=== PATIENT | male | born 1950 | race Caucasian/White ===

== ENCOUNTER → 2018-12-29 | Outpatient (CLI) | payer MEDICARE ==
[2018-12-30 11:39] LABS: Alt. alternata IgE Class CLASS 0; Alternaria alternata IgE <0.35 kU/L (<0.35); Asperg. fumagatus IgE <0.35 kU/L (<0.35); Asperg. fumagatus IgE Class CLASS 0; Aureo. pullulans IgE <0.35 kU/L (<0.35); Aureo. pullulans IgE Class CLASS 0; Birch(Com.Silvr) IgE <0.35 kU/L (<0.35); Birch(Com.Silvr) IgE Class CLASS 0; Candida albicans IgE Class CLASS 0; Cat Epith & Dander IgE <0.35 kU/L (<0.35); Cat Epith & Dander IgE Class CLASS 0; Clad herbarum IgE <0.35 kU/L (<0.35); Clad herbarum IgE Class CLASS 0; Cockroach IgE <0.35 kU/L (<0.35); Com. Pigweed IgE <0.35 kU/L (<0.35); Com. Pigweed IgE Class CLASS 0; Cottonwood IgE <0.35 kU/L (<0.35); Dermato. Pteronyssinus Class CLASS 0; Dermato. Pteronyssinus IgE <0.35 kU/L (<0.35); Dermato. farinae IgE <0.35 kU/L (<0.35); Dermato. farinae IgE Class CLASS 0; Dog Dander IgE <0.35 kU/L (<0.35); English Plantain IgE Class CLASS 0; Epicoccum purpurascens Class CLASS 0; Epicoccum purpurascens IgE <0.35 kU/L (<0.35); Johnson Grass IgE Class CLASS 0; Lamb's Quarter IgE <0.35 kU/L (<0.35); Lamb's Quarter IgE Class CLASS 0; Maple (Box Elder) IgE <0.35 kU/L (<0.35); Maple (Box Elder) IgE Class CLASS 0; Mucor racemosus IgE <0.35 kU/L (<0.35); Mucor racemosus IgE Class CLASS 0; Oak IgE <0.35 kU/L (<0.35); Rhizopus nigricans IgE <0.35 kU/L (<0.35); S.rostrata/Helminth Class CLASS 0; S.rostrata/Helminth IgE <0.35 kU/L (<0.35); Sycamore(Mpl.Lf) IgE <0.35 kU/L (<0.35); Timothy Grass IgE <0.35 kU/L (<0.35); Walnut Tree IgE <0.35 kU/L (<0.35); Walnut Tree IgE Class CLASS 0; White Ash IgE Class CLASS 0
== END | disposition home or self-care (01) ==
LOC: LABWHC1 12:00
PROVIDERS: ATTEND Otolaryngology
DX: J30.89 Other allergic rhinitis (principal)
CPT/HCPCS: 36415; 86001; 86003

== ENCOUNTER → 2019-01-30 | Outpatient (CLI) | payer MEDICARE ==
--- NOTE | 2019-01-30 15:50 | CT ---
EXAMINATION TYPE: CT sinus wo con DATE OF EXAM: 01/30/2019 COMPARISON: None HISTORY: 68-year-old male Facial pain and pressure for years CT DLP: 591 mGycm Automated exposure control for dose reduction was used. TECHNIQUE: Noncontrast axial views of the paranasal sinuses were obtained. Coronal reconstructions pe rformed. FINDINGS: PARANASAL SINUSES: Scattered trace mucosal thickening anterior ethmoid air cells. Additional mild mucosal thickening along the floor and medial grant of the right greater than left ma xillary sinuses. Otherwise, the frontal and sphenoid sinuses are clear and well pneumatized. There is no air-fluid level. Reactive luis- osteogenesis is not seen. There is no destruction of the osseous grant of the paranasal sinuses. THE NASAL CAVITY: The osteomeatal complexes are patent. Rightward nasal septal deviation. The imaged brain and orbits are normal in appearance. Numerous punctate calcifications in the region of the right palatine tonsil suggest a number of tonsi lloliths and/or sequela of prior infection. Mastoid air cells and middle ear cavities are well pneumatized. Reformatted images confirm above findings. IMPRESSION: 1. Mild chronic anterior ethmoid and maxillary sinus disease. 2. Rightward nasal septal deviation. 3. Right palatine tonsils with numerous punctate calcifications, tiny tonsilloliths versus sequela of prior infection.
== END | disposition home or self-care (01) ==
LOC: RADCTMAIN 13:29
PROVIDERS: ATTEND Otolaryngology
DX: J32.2 Chronic ethmoidal sinusitis (principal); J32.0 Chronic maxillary sinusitis; J34.2 Deviated nasal septum
CPT/HCPCS: 70486

== ENCOUNTER 2019-04-05 10:27 | Day surgery (SDC) | payer MEDICARE ==
[2019-03-30 15:18] VITALS: BMI 28.1
[~2019-04-05 10:27] MED LIST: DEXAMETHASONE SOD PHOSPHATE 10 MG/ML 1 ML VIAL IV ONE; DEXAMETHASONE SOD PHOSPHATE 4 MG/ML 1 ML VIAL IV ONE; FAMOTIDINE 20 MG/2 ML VIAL IV ONE; HYDROmorphone 0.5 MG/0.5 ML SYRINGE IVP PRN; LACTATED RINGERS 1,000 ML IV SCH; LIDOCAINE 1% 20 ML VIAL (10MG/ML) FOR IV START INTRADERMA PRN; ONDANSETRON 4 MG/2 ML VIAL IVP ONE; OXYMETAZOLINE 0.05% NASL SPRAY 1 SPRAY BOTTLE NASAL ONE
[2019-04-05 11:21] LABS: Glucose,Whole Blood 133 mg/dL (75-99)
[2019-04-05] MEDS ORDERED: LIDOCAINE 1% INJ 10MG/ML (20 ML MDV) ONE (11:44)
[2019-04-05] MEDS ORDERED: PHENYLEPHRINE-0.9% NACL SYG 1 MG/10 ML SYRINGE ONE (11:44)
[2019-04-05] MEDS ORDERED: PROPOFOL 10 MG/ML 20 ML VIAL IV ONE (11:44)
[2019-04-05] MEDS ORDERED: MIDAZOLAM 2 MG/2 ML VIAL ONE (11:44)
[2019-04-05] MEDS ORDERED: SUCCINYLCHOLINE CHLORIDE 100 MG/5 ML SYR IV ONE (11:44)
[2019-04-05] MEDS ORDERED: ePHEDrine SULFATE/0.9% NACL/PF 50 MG/5 ML SYRINGE IV ONE (11:44)
[2019-04-05] MEDS ORDERED: fentaNYL (PF) 50 MCG/ML 2 ML AMP ONE (11:44)
[2019-04-05] MEDS ORDERED: LIDOCAINE 1%-EPI 1:100,000 20 ML VIAL SUBMUCOSAL ONE ×4 (12:02)
[2019-04-05] MEDS ORDERED: LACTATED RINGERS 1,000 ML IV ONE (12:25)
--- NOTE | 2019-04-05 13:10 | P.OP ---
Date of Procedure: 04/05/19 Preoperative Diagnosis: Deviated nasal septum Inferior turbinate hypertrophy Chronic sinusitis Postoperative Diagnosis: Same Procedure(s) Performed: Septoplasty Outfracture and submucous resection of the inferior turbinates Bilateral endoscopic sinus surgery including bilateral maxillary antrostomy with removal of tissue from the maxillary sinuses and bilateral anterior ethmoidectomy Anesthesia: LAYTON Surgeon: Milan Scott Estimated Blood Loss (ml): 5 Pathology: other (Nasal septal bone and cartilage and sinus contents) Condition: stable Disposition: PACU Indications for Procedure: This is a 68-year-old white male who has difficulties with chronic nasal airway obstruction and congestion as well as recurrent and chronic sinusitis he had computed tomography scan which showed maxillary sinus and scattered anterior ethmoid sinus inflammation/opacification Operative Findings: Nasal septum deviated to the left anteriorly to the right posteriorly with inferior turbinate hypertrophy bilaterally. Estimated complexes were obstructed with small polyps in the maxillary sinuses bilaterally. The anterior ethmoid air cells had some scattered inflammation/mucosal thickening Description of Procedure: The patient was brought into the operative suite and placed in a supine position. The patient underwent induction of general anesthesia with oral endotracheal intubation without difficulty. The patient was prepped and draped in the usual aseptic fashion with the orbits in the operating field for monitoring to the case and the computed tomography scan was on the computer screen for review throughout the case. 1% lidocaine with 1 :100,000 epinephrine was infused submucosally into both sides of the nasal septum as well as the lateral nasal wall and anterior tips of the middle turbinates. While this was taking vasoconstrictive effect the inferior turbinates were infractured with Denton elevator and partial submucous resection of the inferior turbinates was performed with a portion of the submucosal soft tissue and the inferior turbinate bone removed with Coblation device. The inferior turbinates were then outfractured with the Denton elevator. A left hemitransfixion incision was then made with the mucoperichondrial and mucoperiosteal flap on the left elevated. The bony cartilaginous junction was disarticulated and the mucoperiosteal flap on the right was elevated. Bony nasal septal deformities were removed with Andrew forceps and an inferior cartilaginous strip was removed leaving a full 1.5 cm caudal strut. Checking intranasally this corrected the nasoseptal deformities and the hemitransfixion i ncision was closed with a running 4-0 chromic suture. Full 0 endoscopic examination is performed bilaterally. Beginning on the left, the middle turbinate was medialized. The maxillary ostium was located with a ballpoint probe and an infundibulotomy was performed followed by uncinectomy. The maxillary antrostomy was enlarged at the expense of the anterior and posterior fontanelle taking care anteriorly not to injure the lacrimal bone. The maxillary sinus was evaluated with 30 and 70 endoscope .[Abnormal appearing tissue was removed from the maxillary sinus]. Anterior ethmoidectomy were then performed from anterior to posterior to the level of the skull base. The roof of the anterior ethmoid air cells were then cleaned from posterior to anterior using up-biting Blakesley forceps. [Nasopore nasal dressing was placed in the middle meatus bilaterally under direct visualization]. Bilateral Yeung airway splints coated with bacitracin ointment were placed and sutured transseptally with a 4-0 nylon suture. The patient was suctioned in oral gastric fashion and was allowed to emerge from general anesthesia having tolerated procedure well and was extubated in the operating suite and transferred to the postoperative recovery area in satisfactory condition.
[2019-04-05 13:23] VITALS: TEMP 97.7
[2019-04-05 13:34] VITALS: RESP 16
[2019-04-05 13:34] LABS: Glucose,Whole Blood 196 mg/dL (75-99)
[2019-04-05 14:51] VITALS: BP 162/76; PULSE 90
== END 2019-04-05 15:05 | disposition home or self-care (01) ==
LOC: OR 10:27
PROVIDERS: ATTEND Otolaryngology
DX: J32.9 Chronic sinusitis, unspecified (principal); J34.3 Hypertrophy of nasal turbinates; J34.2 Deviated nasal septum; J33.8 Other polyp of sinus; E11.9 Type 2 diabetes mellitus without complications; E78.00 Pure hypercholesterolemia, unspecified; I10 Essential (primary) hypertension; F32.9 Major depressive disorder, single episode, unspecified; H91.90 Unspecified hearing loss, unspecified ear; Z79.84 Long term (current) use of oral hypoglycemic drugs; Z79.899 Other long term (current) drug therapy
CPT/HCPCS: 30520; 31267; 31255; 30140; J2250; J1100; J2405; J0690; J2001; J3010; J2370; J0330; J2704; 88300; 88305

== ENCOUNTER 2020-04-26 07:20 | Day surgery (SDC) | payer MEDICARE ==
[2020-04-25 13:10] VITALS: BMI 30.5
[2020-04-26] MEDS ORDERED: LACTATED RINGERS 1,000 ML IV ONE ×2 (07:37)
[2020-04-26 07:48] VITALS: RESP 16; TEMP 98.2
[2020-04-26 07:53] LABS: Glucose,Whole Blood 165 mg/dL (75-99)
[2020-04-26] MEDS ORDERED: PROPOFOL 10 MG/ML 20 ML VIAL IV ONE (08:10)
[2020-04-26] MEDS ORDERED: LIDOCAINE 1% INJ 10MG/ML (20 ML MDV) ONE (08:10)
--- NOTE | 2020-04-26 08:19 | P.PCN ---
Date of Procedure: 04/26/20 Procedure(s) Performed: BRIEF HISTORY: Patient is a 69-year-old, pleasant, male scheduled for an upper endoscopy as part of evaluation of long-standing history of GERD. He is presently on Prilosec 20 mg twice daily as well as Pepcid at bedtime and still has breakthrough symptoms. He scheduled for an upper endoscopy to rule out complicated reflux. PROCEDURE PERFORMED: Esophagogastroduodenoscopy.With biopsy PREOPERATIVE DIAGNOSIS: Long-standing history of GERD. IV sedation per anesthesia. PROCEDURE: After informed consent was obtained, the patient was brought into the endoscopy unit. IV sedation was administered by Anesthesia under continuous monitoring. Initially the Olympus GIF-140 video endoscope was inserted into the mouth. Esophagus intubated without any difficulty. It was gradually advanced into the stomach and duodenum and carefully examined. The bulb and the second part of the duodenum appeared normal. The scope at this time was withdrawn to the stomach, adequately insufflated with air, and upon careful examination, mucosa of the antrum, mild patchy areas of erythema noted in the antrum and biopsies were done from this area. The body, cardia and the fundus appeared normal. The scope was then withdrawn into the esophagus. The GE junction was located at 41 cm from the incisors. The esophagus appeared normal. There were no erosions or ulcerations seen and the patient tolerated the procedure well. IMPRESSION: 1. Mild antral gastritis. 2. No evidence of esophagitis or Martini's esophagus. RECOMMENDATIONS: The findings of this examination were discussed with the patient as well as his family. He was advised to follow with the biopsy results.. He will continue with Prilosec 20 mg twice daily and Pepcid at bedtime and follow antireflux measures.
[2020-04-26 08:24] VITALS: BP 104/56
[2020-04-26 08:38] VITALS: PULSE 101
== END 2020-04-26 08:54 | disposition home or self-care (01) ==
LOC: ORWHC2ENDO 07:20
PROVIDERS: ATTEND Internal Medicine Gastroenterology
DX: K29.50 Unspecified chronic gastritis without bleeding (principal); K31.9 Disease of stomach and duodenum, unspecified; K21.9 Gastro-esophageal reflux disease without esophagitis; K08.409 Partial loss of teeth, unspecified cause, unspecified class; G47.33 Obstructive sleep apnea (adult) (pediatric); E11.9 Type 2 diabetes mellitus without complications; Z79.84 Long term (current) use of oral hypoglycemic drugs; Z79.899 Other long term (current) drug therapy; Z79.891 Long term (current) use of opiate analgesic; Z98.890 Other specified postprocedural states
CPT/HCPCS: 88305; 43239; J2001; J2704

== ENCOUNTER → 2020-07-10 | Outpatient (CLI) | payer MEDICARE ==
--- NOTE | 2020-07-10 12:09 | CONS ---
CONSULTATION DATE OF SERVICE: 07/10/2020 This 70-year-old gentleman has been evaluated in [facility] for possible obstructive sleep apnea-hypopnea syndrome. HISTORY OF PRESENT ILLNESS/SLEEP-WAKE EVALUATION: Patient had home sleep apnea test which was done in another institution about 1-1/2 years ago. Results of the test the patient does not know clearly, but he was recommended to use CPAP after that. He was started on treatment with CPAP without titration, I believe it is an automatic unit. The patient could not use CPAP equipment and CPAP was withdrawn from him. Presently, his sleep schedule from 11 p.m. to 7 to 7:30 a.m. Sometimes has problems with falling asleep. Has a TV set in bedroom. Sleeps usually on the side position. According to his , he has loud snoring, witnessed episodes of stopped breathing during the sleep. The patient wakes up from sleep with choking, gasping for air, episodes of restless legs, sleep talking, heartburn several times with several episodes of nocturia. Also, he has whole body movements during the sleep. No history of hypnagogic hallucinations, sleep paralysis or cataplexy. Stone Sleepiness Scale significantly increased to 12. The patient indicates sleepiness. PAST MEDICAL HISTORY: Positive for diabetes mellitus, acid reflux. PAST SURGICAL HISTORY: Esophageal balloon , hernia repair, nasal surgery. MEDICATIONS: Metformin 500 mg twice a day, omeprazole 20 mg twice a day, Pepcid 40 mg once at nighttime. SOCIAL HISTORY: Positive for smoking in the past for about 15 years, quit about 30 years ago. Alcohol consumption occasional. FAMILY HISTORY: Hypertension, heart problems. REVIEW OF SYSTEM: Loud snoring, multiple awakenings from sleep, sleepiness during the day. PHYSICAL EXAMINATION: GENERAL: A gentleman without distress. VITAL SIGNS: BP 163/79, HR 73, RR 16, height 5 feet and 7 inches, weight 190.8, body mass index 29.7, temperature 93.3, oxygen saturation at room air 91%. HEENT: PERRLA, EOMI. Evaluation of oropharynx showed extremely low position of soft palate. Mallampati 4. NECK: 16 inches in circumference. LUNGS: Clear to percussion and to auscultation. Good air exchange. No wheezing or rhonchi. HEART: S1, S2 regular. No murmurs, gallops, or rubs. ABDOMEN: Soft and nontender. Bowel sounds are present. No organomegaly appreciated. EXTREMITIES: No clubbing or cyanosis. BLOOD BANK LABORATORY TECHNOLOGIST: Awake, alert, and oriented X3. Cranial nerves 2 to 7 intact. There is no fasciculation or atrophy. noted. No focal deficits observed. IMPRESSION: 1. Loud snoring, witnessed episodes of stopped breathing during sleep, extremely low position of soft palate, Mallampati 4, excessive daytime sleepiness. Stone Sleepiness Scale is 12. Obstructive sleep apnea-hypopnea syndrome. 2. Restless legs syndrome by history. 3. Significant amount of movements during the sleep. Sometimes episodes of whole body movements and leg movements, possibly periodic limb movements, also rule out any REM sleep behavioral disorder. 4. Hypertension in the office. 5. Acid reflux. 6. Status post esophageal balloon for narrowing of esophagus. 7. Hernia repair. 8. Status post nasal surgery. PLAN: 1. Polysomnography for evaluation of patient's breathing during sleep. Also to check for possibility of parasomnia and movements during the sleep. 2. CPAP titration. Previously patient was tried on auto PAP therapy which was not successful. 3. Watching weight. Body mass index is borderline to obesity 29.7. Losing weight. 4. Sleep hygiene with regular time in bed for 7-1/2 to 8 hours. 5. No driving if feeling sleepiness. Thank you very much for referring this patient for consultation. Sincerely, Dre Enriquez MD, PhD, FAASM Diplomat of [place] Board of Medical Specialties [place] Board of Internal Medicine Lithograph Designer of [facility] [place] MMODL / IJN: [id number] /
== END | disposition home or self-care (01) ==
LOC: SLEEP 09:55
PROVIDERS: ATTEND Internal Medicine
DX: G47.33 Obstructive sleep apnea (adult) (pediatric) (principal); I10 Essential (primary) hypertension; K21.9 Gastro-esophageal reflux disease without esophagitis; Z79.84 Long term (current) use of oral hypoglycemic drugs; Z86.59 Personal history of other mental and behavioral disorders; Z79.899 Other long term (current) drug therapy; Z98.890 Other specified postprocedural states
CPT/HCPCS: 99211

== ENCOUNTER → 2021-12-31 | Outpatient (CLI) | payer MEDICARE ==
--- NOTE | 2021-12-31 11:28 | FL ---
EXAMINATION TYPE: FL barium swallow DATE OF EXAM: 12/31/2021 7:27 AM COMPARISON: None CLINICAL INDICATION:Male, 71 years old with history of K21.00 GASTROESOPHAGEAL REFLUX DISEASE WITH ES OPHAGITIS; TECHNIQUE: The procedure was explained and patient history elicited. All patient questions were ans wered prior to start of procedure. Multiple spot fluoroscopic images of the esophagus were obtained a fter the oral ingestion of effervescent crystals and liquid barium as the contrast agent. A animal anatomist ra diograph of the chest was obtained and reviewed. Fluoroscopic time: 40 seconds fluoroscopy time 124 images FINDINGS: The animal anatomist radiograph of the chest demonstrates no evidence of focal consolidation, pneumoth orax or pleural effusion. The cardiomediastinal silhouette is unremarkable. No acute osseous patholog y. The esophagus demonstrates normal primary and secondary peristalsis. There is delayed transit of con trast has a grossly the esophagus with tertiary contractions noted. The esophageal mucosa is smooth w ithout evidence of focal stricture, ulceration, or abnormal outpouching. No gastroesophageal reflux disease was identified. IMPRESSION: Esophageal dysmotility more pronounced while prone with thick barium. Findings would likely be worse with solid food.
== END | disposition home or self-care (01) ==
LOC: RADUSWWP 09:46
PROVIDERS: ATTEND Surgery Plastic and Reconstructive Surgery
DX: K22.4 Dyskinesia of esophagus (principal)
CPT/HCPCS: 74220

== ENCOUNTER 2022-03-04 07:33 | Day surgery (SDC) | payer MEDICARE ==
--- NOTE | 2022-03-04 04:21 | P.GSHP ---
History of Present Illness H&P Date: 03/04/22 CHIEF COMPLAINT: GERD and colon screen HISTORY OF PRESENT ILLNESS: The patient is a 71-year-old male who presents with gastroesophageal reflux disease and need for colon screen. Upper and lower endoscopy were offered for further evaluation and management. PAST MEDICAL HISTORY: Please see list. PAST SURGICAL HISTORY: Please see list. MEDICATIONS: Please see list. ALLERGIES: Please see list. SOCIAL HISTORY: No illicit drug use FAMILY HISTORY: No reports of Crohn disease or ulcerative colitis. REVIEW OF ORGAN SYSTEMS: CONSTITUTIONAL: No reports of fevers or chills. GI: Denies any blood in stools or constipation. PHYSICAL EXAM: VITAL SIGNS: Stable GENERAL: Well-developed pleasant in no acute distress. HEENT: No scleral icterus. Extraocular movements grossly intact. Moist buccal mucosa. NECK: Supple without lymphadenopathy. CHEST: Unlabored respirations. Equal bilateral excursions. CARDIOVASCULAR: Regular rate and rhythm. Distal 2+ pulses. ABDOMEN: Soft, nondistended. MUSCULOSKELETAL: No clubbing, cyanosis, or edema. ASSESSMENT: 1. Gastroesophageal reflux disease 2. Colon screen. PLAN: 1. Recommend proceeding with an upper and lower endoscopy Past Medical History Past Medical History: Diabetes Mellitus, GERD/Reflux, Hearing Disorder / Deafness, Sleep Apnea/CPAP/BIPAP Additional Past Medical History / Comment(s): No CPAP use. restless leg History of Any Multi-Drug Resistant Organisms: None Reported Past Surgical History: Hernia Repair Additional Past Surgical History / Comment(s): Hernia Repair X2. nasal sx, EGD with dilation. Past Anesthesia/Blood Transfusion Reactions: Previous Problems w/ Anesthesia Additional Past Anesthesia/Blood Transfusion Reaction / Comment(s): "stays sleepy for a long time" Past Psychological History: No Psychological Hx Reported Smoking Status: Former smoker Past Alcohol Use History: Rare Additional Past Alcohol Use History / Comment(s): Quit smoking 30 yrs ago. Past Drug Use History: None Reported - Past Family History Mother Family Medical History: Cancer Additional Family Medical History / Comment(s): Black Lung Disease. Medications and Allergies Home Medications Medication Instructions Recorded Confirmed Type Omeprazole 40 mg PO BID 03/30/19 03/02/22 History metFORMIN HCL [Glucophage] 500 mg PO BID 03/30/19 03/02/22 History Baclofen 10 mg PO HS 03/02/22 03/02/22 History Calcium Carb/Mag Ox/Zinc Sulf 1 tab PO DAILY 03/02/22 03/02/22 History [Lcd-Vvp-Ruwt 334-134-5 mg Tab] Celecoxib [CeleBREX] 200 mg PO QAM 03/02/22 03/02/22 History Gabapentin [Neurontin] 100 mg PO HS 03/02/22 03/02/22 History Rosuvastatin Calcium 5 mg PO HS 03/02/22 03/02/22 History tadalafiL 5 mg PO HS PRN 03/02/22 03/02/22 History Allergies Allergy/AdvReac Type Severity Reaction Status Date / Time No Known Allergies Allergy Verified 03/02/22 14:20
[~2022-03-04 07:33] MED LIST changes: -DEXAMETHASONE SOD PHOSPHATE 10 MG/ML 1 ML VIAL IV ONE; -DEXAMETHASONE SOD PHOSPHATE 4 MG/ML 1 ML VIAL IV ONE; -FAMOTIDINE 20 MG/2 ML VIAL IV ONE; -HYDROmorphone 0.5 MG/0.5 ML SYRINGE IVP PRN; -LIDOCAINE 1% 20 ML VIAL (10MG/ML) FOR IV START INTRADERMA PRN; -ONDANSETRON 4 MG/2 ML VIAL IVP ONE; -OXYMETAZOLINE 0.05% NASL SPRAY 1 SPRAY BOTTLE NASAL ONE
[2022-03-04 07:58] VITALS: TEMP 97.2
[2022-03-04 08:07] LABS: Glucose,Whole Blood 100 mg/dL (70-110)
[2022-03-04] MEDS ORDERED: fentaNYL (PF) 50 MCG/ML 2 ML AMP ONE (08:37)
[2022-03-04] MEDS ORDERED: PROPOFOL 10 MG/ML 20 ML VIAL IV ONE (08:37)
[2022-03-04] MEDS ORDERED: LIDOCAINE 2% INJ 20 MG/ML (2 ML VIAL) ONE (08:37)
--- NOTE | 2022-03-04 09:29 | P.PCN ---
Date of Procedure: 03/04/22 Description of Procedure: PREOPERATIVE DIAGNOSIS: Dysphagia POSTOPERATIVE DIAGNOSIS: Dysphagia Esophageal dysmotility Gastritis OPERATION: Esophagogastroduodenoscopy with biopsies along antrum and duodenum Esophagogastroduodenoscopy with rigid dilator, 57-Beninese SURGEON: Penelope Shetty MD ANESTHESIA: MAC. INDICATIONS: The patient is a 71-year-old male who presents with reflux disease. Benefits and risks of the procedure were described. Informed consent was obtained. DESCRIPTION: The patient was brought into the endoscopy suite and laid in the left lateral decubitus position. An Olympus gastroscope was passed along the posterior oropharynx down to the distal esophagus where the squamocolumnar junction was encountered at 40 cm from the incisors. The stomach was entered and bile reflux was found. Additional findings are listed below. Biopsies with cold forceps were obtained of the antrum. The first through third portion of the duodenum was examined. Retroflexion of the scope confirmed Hill grade 2 lower esophageal valve. The squamocolumnar junction demonstrated LA grade A erosive esophagitis. Presence of tertiary contractions identified with esophageal dysmotility. Guidewire was placed through the scope. The scope was removed followed by a 57- Beninese [place] Islander rigid dilator for 2 minutes. The guidewire and dilator removed. The scope was reinserted. No full-thickness injury was identified of the stomach or esophagus. The stomach was desufflated. The patient tolerated the procedure well. FINDINGS: Squamocolumnar junction 40 cm from the incisors. Diaphragmatic hiatus at 40 cm. Hill grade 2 lower esophageal valve. LA grade A erosive esophagitis. Biopsies obtained of duodenum Chronic gastritis Esophageal dysmotility were tertiary contractions consistent with presbyesophagus Dilation of esophagus 57-Fr for esophageal dysmotility RECOMMENDATIONS: Upper endoscopy as needed.
[2022-03-04 09:36] VITALS: RESP 14
--- NOTE | 2022-03-04 09:37 | P.PCN ---
Date of Procedure: 03/04/22 Description of Procedure: PREOPERATIVE DIAGNOSIS: Personal history of colon polyps Colonoscopy screening POSTOPERATIVE DIAGNOSIS: Tubular adenoma transverse colon Colitis of the cecum Colitis sigmoid colon Internal hemorrhoids, grade 2 Tubular adenoma descending colon OPERATION: Colonoscopy to the ileocecal valve and appendiceal orifice, cecum Colonoscopy with hot snare polypectomy Colonoscopy with cold forceps biopsy SURGEON: Penelope Shetty MD. ANESTHESIA: MAC. INDICATIONS: The patient is an 71-year-old male who present personal history of colon polyps. Last colonoscopy 5 years. Benefits and risks were described and informed consent was obtained. DESCRIPTION OF PROCEDURE: The patient had undergone Sutab prep. The patient had been brought into the operating room and laid in the left lateral decubitus position. After adequate intravenous sedation, the rectum was examined with 2% lidocaine jelly. The prostate was unremarkable. External hemorrhoids were encountered. The rectal tone was within normal limits. No lesions were palpated in the rectal vault. An Olympus colonoscope was advanced until the cecum, ileocecal valve and appendiceal orifice were clearly viewed. The prep was good. No large sigmoid diverticulosis was encountered. Colonic polyps were found and removed. No evidence of focal colitis was found. Retroflexion of the scope demonstrated grade 2 internal hemorrhoids without active bleeding or inflammation. The colon was desufflated. The patient had tolerated the procedure well. Withdrawal time was over 6 minutes. FINDINGS: Aronchick preparation quality scale 2 (1-5) Internal hemorrhoids, grade 2 External hemorrhoids, grade 2. No arteriovenous malformations. No large sigmoid diverticulosis Colitis of the cecum/ileocecal valve with biopsies obtained Colitis sigmoid colon with biopsies obtained Removal of 3 polyps: - Snare polypectomy mid transverse colon, 5 mm tubulovillous adenoma polyp. - Snare polypectomy of descending colon, 30 cm from the anal verge, 6 mm flat villous adenoma polyp. - Cold forceps biopsy at cecum, 4 mm polyp. RECOMMENDATIONS: Given severity of tubular adenomas, recommend repeat colonoscopy in 3 years, 2024 Plan - Discharge Summary Discharge Rx Participant: No New Discharge Prescriptions: New metroNIDAZOLE [Flagyl] 500 mg PO TID #30 tab Continue metFORMIN HCL [Glucophage] 500 mg PO BID Omeprazole 40 mg PO BID tadalafiL 5 mg PO HS PRN PRN Reason: ERECTILE DYSFUNCTION Baclofen 10 mg PO HS Celecoxib [CeleBREX] 200 mg PO QAM Gabapentin [Neurontin] 100 mg PO HS Rosuvastatin Calcium 5 mg PO HS Calcium Carb/Mag Ox/Zinc Sulf [Utf-Nga-Rfmy 334-134-5 mg Tab] 1 tab PO DAILY Discharge Medication List Omeprazole 40 mg PO BID 03/30/19 [History] metFORMIN HCL [Glucophage] 500 mg PO BID 03/30/19 [History] Baclofen 10 mg PO HS 03/02/22 [History] Calcium Carb/Mag Ox/Zinc Sulf [Ezk-Fmw-Ohxb 334-134-5 mg Tab] 1 tab PO DAILY 03/02/22 [History] Celecoxib [CeleBREX] 200 mg PO QAM 03/02/22 [History] Gabapentin [Neurontin] 100 mg PO HS 03/02/22 [History] Rosuvastatin Calcium 5 mg PO HS 03/02/22 [History] tadalafiL 5 mg PO HS PRN 03/02/22 [History] metroNIDAZOLE [Flagyl] 500 mg PO TID #30 tab 03/04/22 [Rx] Follow up Appointment(s)/Referral(s): Penelope Shetty MD [STAFF PHYSICIAN] - 03/24/22 Patient Instructions/Handouts: Colorectal Polyps (GEN), Colitis (ED), Esophageal Dilation (DC), Umbilical Hernia (DC) Activity/Diet/Wound Care/Special Instructions: Repeat colonoscopy 3 years, 2024 Discharge Disposition: HOME SELF-CARE
[2022-03-04 10:34] VITALS: BP 112/70; PULSE 82
[2022-03-04 10:42] LABS: Basophils # (A) 0.1 k/uL (0-0.2); Basophils % (A) 1 %; Eosinophils # (A) 0.1 k/uL (0-0.7); Eosinophils % (A) 1 %; HCT 52.4 % (39.0-53.0); HGB 17.7 gm/dL (13.0-17.5); Lymphocytes # (A) 1.2 k/uL (1.0-4.8); Lymphocytes % (A) 13 %; MCH 30.8 pg (25.0-35.0); MCHC 33.7 g/dL (31.0-37.0); MCV 91.4 fL (80.0-100.0); Mean Platelet Volume 7.4; Monocytes # (A) 0.6 k/uL (0-1.0); Monocytes % (A) 6 %; Neutrophils # (A) 6.7 k/uL (1.3-7.7); Neutrophils % (A) 77 %; Platelet Count 211 k/uL (150-450); RBC 5.73 m/uL (4.30-5.90); RDW 13.3 % (11.5-15.5); WBC 8.7 k/uL (3.8-10.6)
[2022-03-04 10:48] LABS: ALT 30 U/L (4-49); AST 29 U/L (17-59); African American GFR (CKD) >90 (>60 ml/min/1.73 sqM); Albumin 4.4 g/dL (3.5-5.0); Alkaline Phosphatase 75 U/L (38-126); Anion Gap 9 mmol/L; Blood Urea Nitrogen 18 mg/dL (9-20); Calcium 8.9 mg/dL (8.4-10.2); Carbon Dioxide 27 mmol/L (22-30); Chloride 104 mmol/L (98-107); Glucose 110 mg/dL (74-99); Non-African American GFR(CKD) 79 (>60 ml/min/1.73 sqM); Potassium 4.7 mmol/L (3.5-5.1); Sodium 140 mmol/L (137-145); Total Bilirubin 1.1 mg/dL (0.2-1.3); Total Protein 7.6 g/dL (6.3-8.2)
== END 2022-03-04 10:59 | disposition home or self-care (01) ==
LOC: ORWHC2ENDO 07:33
PROVIDERS: ATTEND Surgery Plastic and Reconstructive Surgery
DX: Z12.11 Encounter for screening for malignant neoplasm of colon (principal); D12.3 Benign neoplasm of transverse colon; K22.4 Dyskinesia of esophagus; K29.90 Gastroduodenitis, unspecified, without bleeding; K52.9 Noninfective gastroenteritis and colitis, unspecified; K64.4 Residual hemorrhoidal skin tags; K64.1 Second degree hemorrhoids; K21.00 Gastro-esophageal reflux disease with esophagitis, without bleeding; K44.9 Diaphragmatic hernia without obstruction or gangrene; K22.89 Other specified disease of esophagus; D72.820 Lymphocytosis (symptomatic); D12.4 Benign neoplasm of descending colon; K63.89 Other specified diseases of intestine; E11.9 Type 2 diabetes mellitus without complications; Z79.84 Long term (current) use of oral hypoglycemic drugs; G47.33 Obstructive sleep apnea (adult) (pediatric); H91.90 Unspecified hearing loss, unspecified ear; Z90.49 Acquired absence of other specified parts of digestive tract; Z87.891 Personal history of nicotine dependence; F10.10 Alcohol abuse, uncomplicated; Z80.2 Family history of malignant neoplasm of other respiratory and intrathoracic organs; Z79.1 Long term (current) use of non-steroidal anti-inflammatories (NSAID); Z79.02 Long term (current) use of antithrombotics/antiplatelets; Z79.899 Other long term (current) drug therapy
CPT/HCPCS: 43248; 88305; 80053; 85025; 45380; 45385; 43239; 43249; J3010; J2704; J2001

== ENCOUNTER 2022-06-15 06:20 | Day surgery (SDC) | payer MEDICARE ==
[2022-06-11 12:19] VITALS: BMI 28.6
[~2022-06-15 06:20] MED LIST changes: +ALPRAZolam 0.25 MG TAB PO PRN; +ALPRAZolam 0.5 MG TAB PO PRN; +HEPARIN SODIUM,PORCINE 10,000 UNIT in SODIUM CHLORIDE 0.9% 1,000 ML IRRIGATION PRN; +HEPARIN SODIUM,PORCINE 2,500 UNIT in SODIUM CHLORIDE 0.9% 250 ML IRRIGATION PRN; -LACTATED RINGERS 1,000 ML IV SCH; +NITROGLYCERIN SL TABS 0.4 MG TAB SUBLINGUAL PRN; +SODIUM CHLORIDE 0.9% 1,000 ML in EMPTY BAG 1 BAG IV SCH
[2022-06-15 06:52] VITALS: TEMP 97.9
[2022-06-15 06:55] LABS: Glucose,Whole Blood 147 mg/dL (70-110)
[2022-06-15] MEDS ORDERED: ASPIRIN 325 MG TAB PO ONE (07:00)
[2022-06-15] MEDS ORDERED: ATORVASTATIN 80 MG TAB PO ONE (07:00)
[2022-06-15] MEDS ORDERED: VERAPAMIL 2.5 MG/ML 2 ML AMP ONE (07:10)
[2022-06-15] MEDS ORDERED: HEPARIN SODIUM 1,000 UN/ML (10ML VL) ONE (07:46)
[2022-06-15] MEDS ORDERED: fentaNYL (PF) 50 MCG/ML 2 ML AMP ONE (07:46)
[2022-06-15] MEDS ORDERED: fentaNYL (PF) 50 MCG/ML 2 ML AMP IV ONE (07:51)
[2022-06-15] MEDS ORDERED: MIDAZOLAM 2 MG/2 ML VIAL IV ONE (07:51)
[2022-06-15] MEDS ORDERED: LIDOCAINE 1% INJ 10MG/ML (5 ML VIAL-PF) SQ ONE (07:52)
[2022-06-15] MEDS ORDERED: VERAPAMIL SYRINGE (5 MG/10 ML) INTRAARTER ONE (07:53)
[2022-06-15] MEDS: HEPARIN SODIUM 1,000 UN/ML (10ML VL) IV ONE ×2 (07:55→08:52)
[2022-06-15] MEDS ORDERED: HEPARIN SODIUM 1,000 UN/ML (10ML VL) IV ONE ×2 (08:05→08:15)
[2022-06-15] MEDS ORDERED: NITROGLYCERIN 1000MCG/10ML SYRINGE INTRACORON ONE ×3 (08:13→08:42)
[2022-06-15] MEDS ORDERED: IOPAMIDOL-370 125ML BTL INJ ONE (08:22)
[2022-06-15] MEDS ORDERED: IOPAMIDOL-370 100ML BTL INJ ONE (08:49)
[2022-06-15] MEDS ORDERED: SODIUM CHLORIDE 0.9% 1,000 ML IV ONE (09:00)
[2022-06-15] MEDS ORDERED: MAG HYDROX/AL HYDROX/SIMETH 30 ML CUP PO PRN (09:24)
[2022-06-15] MEDS ORDERED: ATROPINE SULFATE 0.1 MG/ML 10ML SYRINGE IV PRN (09:24)
[2022-06-15] MEDS ORDERED: NITROGLYCERIN SL TABS 0.4 MG TAB SUBLINGUAL PRN (09:24)
[2022-06-15] MEDS ORDERED: SODIUM CHLORIDE 0.9% 1,000 ML in EMPTY BAG 1 BAG IV SCH (09:30)
--- NOTE | 2022-06-15 13:33 | P.PRCINT ---
Percutaneous Coronary Int. - Percutaneous Coronary Intervention Percutaneous Coronary Intervention: PROCEDURES PERFORMED: Left heart catheterization, bilateral coronary angiography, PCI mid LAD with 2.25 x 28mm , post dilated 2.5 mm NC balloon, balloon angioplasty ostial diagonal 2, PCI OM1 with 2.5 x 18mm Xience BRITTANI INDICATION: Unstable angina, staged PCI HPI: Patient has been having continued chest pain while at rest and with minimal exertion such as with sex despite previous PCI RCA. He still has residual LAD lesion, iFR abnormal and OM1 lesion. Therefore intervention was recommended. CONSENT:I have discussed the risks, benefits and alternative therapies for the above-mentioned procedure and for both sedation/analgesia as well as necessary blood product administration, if indicated, as they pertain to this patient. The patient has indicated understanding and acceptance of the risks and procedures discussed. PROCEDURE: After the risks, benefits and alternatives of the above mentioned procedure explained in detail with the patient, informed consent was obtained. Patient was taken to the catheterization lab and prepped and draped in usual fashion. 1% lidocaine was used to anesthetize the right radial artery. A 6- Czech sheath was placed in the right radial artery using modified Seldinger technique. Right coronary angiography was performed with a 5-Czech JR5 catheter in various views. A 5-Czech FR5 catheter was inserted into the left ventricle and pressure measurements were obtained. The decision was made to perform PCI of the LAD. A 6-Czech CLS 3.0 guide was used to engage the left main. The 0.014 BMW wire was advanced in the distal OM1 branch. Predilation was performed with a 2.5 x 12 mm balloon. Next a 2.5 x 18 mm Xience BRITTANI was placed at the proximal OM1. The wire was pulled on final angiograms were performed. Prentervention there is 80% stenosis and BLAIR-3 flow and postintervention there was 0% stenosis with BLAIR 3 flow. Next, the decision was made to perform PCI of the mid LAD branch. A 0.014 BMW wire was advanced into the distal LAD and a second 0.014 whisper wire was advanced in the distal diagonal 2 branch. Predilation was performed of the diagonal branch as well as the LAD with a 2.0 x 12 mm balloon. There was still some residual diagonal branch stenosis and therefore a 2.0 x 12 mm noncompliant balloon was used to perform balloon angioplasty. Next a 2.25 x 28 mm Xeince BRITTANI was placed in the mid LAD. The middle portion of the stent was postdilated with a 2.5 x 12 mm noncompliant balloon. The wire was pulled on final angiographic transfer performed. Pre-intervention there was 85% stenosis and BLAIR 3 flow and postintervention there was less than 10% stenosis with BLAIR 3 flow with preserved flow in the diagonal 2 branch. The right radial sheath was removed and a TR band was placed with hemostasis achieved. The patient tolerated the procedure well. Patient was transported back to the post catheterization holding area in stable condition. Conscious Sedation: Patient was monitored under the direct supervision of vision of myself for conscious sedation using Versed and fentanyl for a total duration of 54 minutes HEMODYNAMICS: Aorta: 132/70 LV: 158/1, LVEDP 19 SELECTIVE CORONARY ARTERIOGRAPHY: LEFT MAIN: The left main is a large caliber vessel which bifurcates into the LAD and circumflex. There is mild 20-30% left main stenosis. The left main is noted to be short. LEFT ANTERIOR DESCENDING CORONARY ARTERY: LAD is a large caliber vessel which wraps around to the apex. There is proximal LAD 20-30% stenosis. The mid LAD at the level of a diagonal 2 branch has a 80% stenosis. LEFT CIRCUMFLEX CORONARY ARTERY: Left circumflex is a moderate caliber vessel. OM1 has a 80% stenosis. Otherwise there are diffuse mild 20-30% circumflex disease RIGHT CORONARY ARTERY: The right coronary artery is a large caliber vessel which gives off a PDA and PLV branch and is the dominant vessel. There is a mid RCA stent which is patent with otherwise mild 30% stenosis FINAL IMPRESSION: 1. CAD as described above including left main 20-30%, proximal LAD 20-30%, mid LAD 80%, OM1 80%, RCA 30% stenosis 2. S/p PCI mid LAD with 2.25 x 28mm , post dilated 2.5 mm NC balloon, balloon angioplasty ostial diagonal 2, PCI OM1 with 2.5 x 18mm Xience BRITTANI 3. Mildly elevated left sided filling pressures PLAN: 1. Aggressive risk factor modification per most recent ACC/AHA guidelines. 2. Continue dual antiplatelets with aspirin and Plavix for 6 months
[2022-06-15 14:01] VITALS: BP 137/74; PULSE 64; RESP 16
[2022-06-15] MEDS ORDERED: ZOLPIDEM 5 MG TAB PO PRN (21:00)
[2022-06-16] MEDS ORDERED: CLOPIDOGREL 75 MG TAB PO SCH (09:00)
== END 2022-06-15 13:03 | disposition home or self-care (01) ==
LOC: CATHCVL 06:20
PROVIDERS: ATTEND Internal Medicine
DX: I25.10 Atherosclerotic heart disease of native coronary artery without angina pectoris (principal); E11.9 Type 2 diabetes mellitus without complications; G62.9 Polyneuropathy, unspecified; F17.210 Nicotine dependence, cigarettes, uncomplicated; Z82.49 Family history of ischemic heart disease and other diseases of the circulatory system; Z79.899 Other long term (current) drug therapy
CPT/HCPCS: C9600; C1769 ×3; C1887; C1894; C1725 ×4; C1874 ×2; J2250; J2001; J3010; J1644; Q9967 ×2; 92921

== ENCOUNTER → 2022-10-15 | Outpatient (CLI) | payer MEDICARE ==
[2022-10-15 13:34] LABS: ALT 22 U/L (10-49); AST 26 U/L (14-35); Chol/HDL Ratio 3.43 Ratio; LDL Cholesterol,Calculated 55.2 mg/dL (0.0-131.0)
== END | disposition home or self-care (01) ==
LOC: LABWHC1 07:31
PROVIDERS: ATTEND Internal Medicine
DX: E78.2 Mixed hyperlipidemia (principal)
CPT/HCPCS: 36415; 80061; 84450; 84460

== ENCOUNTER 2023-09-15 08:42 | Day surgery (SDC) | payer MEDICARE ==
[2023-09-10 12:35] VITALS: BMI 29.7
--- NOTE | 2023-09-15 08:40 | P.GSHP ---
History of Present Illness H&P Date: 09/15/23 CHIEF COMPLAINT: GI bleed HISTORY OF PRESENT ILLNESS: The patient is a 73-year-old male who presents with GI bleed for over 3 months. Upper and lower endoscopy were offered for further evaluation and management. PAST MEDICAL HISTORY: Please see list. PAST SURGICAL HISTORY: Please see list. MEDICATIONS: Please see list. ALLERGIES: Please see list. SOCIAL HISTORY: No illicit drug use FAMILY HISTORY: No reports of Crohn disease or ulcerative colitis. REVIEW OF ORGAN SYSTEMS: CONSTITUTIONAL: No reports of fevers or chills. GI: Has GI bleed for over 3 months PHYSICAL EXAM: VITAL SIGNS: Stable GENERAL: Well-developed pleasant in no acute distress. HEENT: No scleral icterus. Extraocular movements grossly intact. Moist buccal mucosa. NECK: Supple without lymphadenopathy. CHEST: Unlabored respirations. Equal bilateral excursions. CARDIOVASCULAR: Regular rate and rhythm. Distal 2+ pulses. ABDOMEN: Soft, nondistended. MUSCULOSKELETAL: No clubbing, cyanosis, or edema. ASSESSMENT: 1. GI bleed PLAN: 1. Recommend proceeding with an upper and lower endoscopy for GI bleed Past Medical History Past Medical History: Coronary Artery Disease (CAD), Diabetes Mellitus, GERD/Reflux, Hearing Disorder / Deafness, Hyperlipidemia, Hypertension, Sleep Apnea/CPAP/BIPAP Additional Past Medical History / Comment(s): No CPAP use. RLS. Bilateral hearing aids. Hx high blood pressure and high cholesterol, both currently improved. History of Any Multi-Drug Resistant Organisms: None Reported Past Surgical History: Heart Catheterization With Stent, Hernia Repair, O rthopedic Surgery Additional Past Surgical History / Comment(s): Hernia repair X2, nasal surgery, EGD with dilation, colonoscopy, EGD, heart cath with 2 stents X2 (05/13/22 and 06/18) right rotator cuff repair. Past Anesthesia/Blood Transfusion Reactions: Previous Problems w/ Anesthesia Additional Past Anesthesia/Blood Transfusion Reaction / Comment(s): "Stays sleepy for a long time." Date of Last Stent Placement:: 06/18 Smoking Status: Former smoker - Past Family History Mother Family Medical History: Cancer Additional Family Medical History / Comment(s): Black Lung Disease. Brother(s) Family Medical History: Cancer Additional Family Medical History / Comment(s): Pancreatic cancer. Medications and Allergies Home Medications Medication Instructions Recorded Confirmed Type Omeprazole 40 mg PO HS 03/30/19 09/10/23 History metFORMIN HCL [Glucophage] 500 mg PO BID 03/30/19 09/10/23 History Calcium Carb/Mag Ox/Zinc Sulf 1 tab PO DAILY 03/02/22 09/10/23 History [Gyc-Guj-Dylq 334-134-5 mg Tab] Celecoxib [CeleBREX] 200 mg PO QAM 03/02/22 09/10/23 History tadalafiL 5 mg PO HS PRN 03/02/22 09/10/23 History Aspirin [Adult Low Dose Aspirin EC] 81 mg PO DAILY 05/08/22 09/10/23 History traMADol HCL 50 mg PO HS 05/08/22 09/10/23 History Empagliflozin [Jardiance] 10 mg PO DAILY 05/13/22 09/10/23 History Rosuvastatin [Crestor] 5 mg PO HS 06/11/22 09/10/23 History Multivitamins, Thera [Multivitamin 1 tab PO DAILY 09/10/23 09/10/23 History (formulary)] Allergies Allergy/AdvReac Type Severity Reaction Status Date / Time No Known Allergies Allergy Verified 09/10/23 12:19
[2023-09-15 09:13] VITALS: TEMP 97.7
[2023-09-15] MEDS ORDERED: LIDOCAINE 1% (10MG/ML) FOR IV START INTRADERMA PRN (09:13)
[2023-09-15] MEDS: LACTATED RINGERS 1,000 ML IV SCH (09:18)
[2023-09-15] MEDS: IV FLUID CONTINUATION 1,000 ML IV ONE (09:19)
[2023-09-15 09:20] LABS: Glucose,Whole Blood 140 mg/dL (70-110)
[2023-09-15] MEDS ORDERED: fentaNYL (PF) 50 MCG/ML 2 ML AMP ONE (10:05)
[2023-09-15] MEDS ORDERED: PROPOFOL 10 MG/ML 20 ML VIAL IV ONE (10:05)
[2023-09-15] MEDS ORDERED: LIDOCAINE 1% INJ 10MG/ML (20 ML MDV) ONE (10:05)
[2023-09-15 10:45] VITALS: RESP 16
[2023-09-15 11:02] VITALS: BP 107/72; PULSE 80
--- NOTE | 2023-09-15 11:47 | P.PCN ---
Date of Procedure: 09/15/23 Description of Procedure: PREOPERATIVE DIAGNOSIS: GI bleed POSTOPERATIVE DIAGNOSIS: Ascending colitis Proctitis OPERATION: Colonoscopy to the ileocecal valve and appendiceal orifice, cecum Colonoscopy with cold forceps biopsy SURGEON: Penelope Shetty MD. ANESTHESIA: MAC. INDICATIONS: The patient is an 73-year-old male who presents with over 3 months of GI bleed including of the rectum. Benefits and risks were described and informed consent was obtained. DESCRIPTION OF PROCEDURE: The patient had undergone Golytely prep. The patient had been brought into the operating room and laid in the left lateral decubitus position. After adequate intravenous sedation, the rectum was examined with 2% lidocaine jelly. The prostate was unremarkable. External hemorrhoids were encountered. The rectal tone was within normal limits. No lesions were palpated in the rectal vault. An Olympus colonoscope was advanced until the cecum, ileocecal valve and appendiceal orifice were clearly viewed. The prep was fair. Acute inflammation of the rectum was identified consistent with proctitis. No colonic polyps were found and removed. Cryptic abscesses were identified of the ascending colon consistent with colitis. Retroflexion of the scope demonstrated grade 3 internal hemorrhoids without active bleeding or inflammation. The colon was desufflated. The patient had tolerated the procedure well. Withdrawal time was over 6 minutes. FINDINGS: Aronchick preparation quality scale 2 (1-5) Internal hemorrhoids, grade 3 External hemorrhoids, grade 3. No arteriovenous malformations. Active proctitis with inflammation consistent with cause of bleeding with biopsies obtained Cryptic abscesses of the ascending colon for colitis with biopsies obtained RECOMMENDATIONS: 1. Flagyl 500 mg 3 times daily for 2 weeks with refill 2. Additional recommendations pending results of biopsy Plan - Discharge Summary Discharge Rx Participant: No New Discharge Prescriptions: New metroNIDAZOLE [Flagyl] 500 mg PO TID #30 tab Continue metFORMIN HCL [Glucophage] 500 mg PO BID Omeprazole 40 mg PO HS tadalafiL 5 mg PO HS PRN PRN Reason: ERECTILE DYSFUNCTION Aspirin [Adult Low Dose Aspirin EC] 81 mg PO DAILY Multivitamins, Thera [Multivitamin (formulary)] 1 tab PO DAILY Calcium Carb/Mag Ox/Zinc Sulf [Pmk-Anz-Ddox 334-134-5 mg Tab] 1 tab PO DAILY traMADol HCL 50 mg PO HS Empagliflozin [Jardiance] 10 mg PO DAILY Rosuvastatin [Crestor] 5 mg PO HS Discontinued Celecoxib [CeleBREX] 200 mg PO QAM Discharge Medication List Omeprazole 40 mg PO HS 03/30/19 [History] metFORMIN HCL [Glucophage] 500 mg PO BID 03/30/19 [History] Calcium Carb/Mag Ox/Zinc Sulf [Ihz-Ohw-Ageg 334-134-5 mg Tab] 1 tab PO DAILY 03/02/22 [History] tadalafiL 5 mg PO HS PRN 03/02/22 [History] Aspirin [Adult Low Dose Aspirin EC] 81 mg PO DAILY 05/08/22 [History] traMADol HCL 50 mg PO HS 05/08/22 [History] Empagliflozin [Jardiance] 10 mg PO DAILY 05/13/22 [History] Rosuvastatin [Crestor] 5 mg PO HS 06/11/22 [History] Multivitamins, Thera [Multivitamin (formulary)] 1 tab PO DAILY 09/10/23 [History] metroNIDAZOLE [Flagyl] 500 mg PO TID #30 tab 09/15/23 [Rx] Follow up Appointment(s)/Referral(s): Penelope Shetty MD [STAFF PHYSICIAN] - 09/28/23 1:00 pm Patient Instructions/Handouts: *Surgery [facility] - (Anesthesia) Discharge Instructions Outpatient Surgery, Colitis (ED), Colonoscopy (DC), Upper Endoscopy (DC) Discharge Disposition: HOME SELF-CARE
--- NOTE | 2023-09-15 12:04 | P.PCN ---
Date of Procedure: 09/15/23 Description of Procedure: PREOPERATIVE DIAGNOSIS: GI bleed POSTOPERATIVE DIAGNOSIS: Gastritis Gastroesophageal reflux disease OPERATION: Esophagogastroduodenoscopy with biopsies along esophagus, antrum and duodenum SURGEON: Penelope Shetty MD ANESTHESIA: MAC. INDICATIONS: The patient is a 73-year-old male who presents with GI bleed. Benefits and risks of the procedure were described. Informed consent was obtained. DESCRIPTION: The patient was brought into the endoscopy suite and laid in the left lateral decubitus position. An Olympus gastroscope was passed along the posterior oropharynx down to the distal esophagus where the squamocolumnar junction was encountered at 37 cm from the incisors. The stomach was entered and no bile reflux was found. Additional findings are listed below. Biopsies with cold forceps were obtained of the antrum. The first through third portion of the duodenum was examined. Retroflexion of the scope confirmed Hill grade 3 lower esophageal valve. The squamocolumnar junction demonstrated LA grade B erosive esophagitis. The stomach was desufflated. The patient tolerated the procedure well. FINDINGS: Squamocolumnar junction 37 cm from the incisors. Diaphragmatic hiatus at 38 cm. Hiatal hernia, 1 cm Hill grade 3 lower esophageal valve. LA grade B erosive esophagitis. Biopsies obtained Biopsies obtained of the duodenum. Chronic gastritis with biopsies obtained. Active reflux of the distal esophagus consistent with gastroesophageal reflux disease RECOMMENDATIONS: Upper endoscopy as needed.
== END 2023-09-15 11:50 | disposition home or self-care (01) ==
LOC: ORWHC2ENDO 08:42
PROVIDERS: ATTEND Surgery Plastic and Reconstructive Surgery
DX: K62.89 Other specified diseases of anus and rectum (principal); E11.9 Type 2 diabetes mellitus without complications; I25.10 Atherosclerotic heart disease of native coronary artery without angina pectoris; I10 Essential (primary) hypertension; K21.9 Gastro-esophageal reflux disease without esophagitis; K29.70 Gastritis, unspecified, without bleeding; E78.5 Hyperlipidemia, unspecified; G25.81 Restless legs syndrome; G47.33 Obstructive sleep apnea (adult) (pediatric); Z79.82 Long term (current) use of aspirin; Z79.84 Long term (current) use of oral hypoglycemic drugs; Z87.891 Personal history of nicotine dependence; Z98.890 Other specified postprocedural states; Z79.899 Other long term (current) drug therapy
CPT/HCPCS: 88305; 45380; 43239; J2001; J3010; J2704; 43235

== ENCOUNTER 2024-05-26 05:37 | Day surgery (SDC) | payer MEDICARE ==
[2024-05-23 15:37] VITALS: BMI 28.1
[2024-05-26] MEDS: IV FLUID CONTINUATION 1,000 ML IV ONE ×2 (06:12→10:45)
--- NOTE | 2024-05-26 06:33 | P.GSHP ---
History of Present Illness H&P Date: 05/26/24 CHIEF COMPLAINT: Ventral hernia HISTORY OF PRESENT ILLNESS: The patient is a 74-year-old male presents with a history of swelling and pain along the abdomen from a hernia of the abdomen. Symptoms have been present for over 1 year. He has pre-existing cardiac disease and has received cardiac risk assessment. Now he presents for surgical intervention. PAST MEDICAL HISTORY: Please see list. PAST SURGICAL HISTORY: Please see list. MEDICATIONS: Please see list. ALLERGIES: Please see list. SOCIAL HISTORY: No illicit drug use FAMILY HISTORY: No reports of Crohn disease or ulcerative colitis. REVIEW OF ORGAN SYSTEMS: CONSTITUTIONAL: Denies any fever or chills. Intentional weight loss HEENT: Denies any trouble with vision, hearing or nosebleeds. No difficulty swallowing. LYMPHATIC: The patient denies any lumps and bumps around the neck. ENDOCRINE: Denies any thyroid disorders. Has blood sugar glucose intolerance. RESPIRATORY: Denies pneumonia. Denies any troubles with breathing or dyspnea on exertion. CARDIOVASCULAR: Coronary artery disease status post stent GASTROINTESTINAL: Denies heart burn, constipation or bright red blood per rectum. GENITOURINARY: Denies any blood in urine or increased urinary frequency. MUSCULOSKELETAL: As back pain, stiffness, joint arthritis. NEUROLOGIC: Denies any numbness or tingling along the distal extremities. No seizure disorders or headaches. PSYCHIATRIC: Denies depression or suidical ideation. HEMATOLOGIC: Denies any abnormal bleeding or bruising. BREASTS: Denies any breast lumps, pain or nipple discharge. PHYSICAL EXAM: GENERAL: Well-developed pleasant male in no acute distress. HEENT: No scleral icterus. Extraocular movements grossly intact. Moist buccal mucosa. NECK: Supple without lymphadenopathy. CHEST: Unlabored respirations. Equal bilateral excursions. CARDIOVASCULAR: Regular rate and rhythm. Distal 2+ pulses. ABDOMEN: Soft, nondistended. Palpable defect of the abdomen. No peritoneal signs. MUSCULOSKELETAL: No clubbing, cyanosis, or edema. SKIN: Well perfused. PSYCH: Alert and oriented to self, place and time ASSESSMENT: 1. Ventral hernia, initial PLAN: 1. Recommend proceeding with robotic ventral hernia repair with mesh. 2. Benefits and risks of surgical intervention was discussed including possibility of open technique. 3. DVT prophylaxis. 4. Antibiotic prophylaxis. 5. Non narcotic pain management including abdominal wall block described 6. Blood sugar glucose described. 7. Weight loss management described. 8. Patient is elevated risk due to pre-existing coronary artery disease Past Medical History Past Medical History: Coronary Artery Disease (CAD), Chest Pain / Angina, Diabetes Mellitus, GERD/Reflux, Hearing Disorder / Deafness, Hyperlipidemia, Hypertension, Rheumatoid Arthritis (RA), Sleep Apnea/CPAP/BIPAP Additional Past Medical History / Comment(s): No CPAP use. RLS. Bilateral hearing aids. Hx high blood pressure and high cholesterol, both currently improved. Type II diabetic per H+P. History of Any Multi-Drug Resistant Organisms: None Reported Past Surgical History: Heart Catheterization With Stent, Hernia Repair, Orthopedic Surgery Additional Past Surgical History / Comment(s): Hernia repair X2, nasal surgery, EGD with dilation, colonoscopy, EGD, heart cath with 2 stents X2 (05/13/22 and 06/18) right rotator cuff repair. Past Anesthesia/Blood Transfusion Reactions: Previous Problems w/ Anesthesia Additional Past Anesthesia/Blood Transfusion Reaction / Comment(s): "Stays sleepy for a long time.". No hx of blood transfusion to date. Date of Last Stent Placement:: 06/18 Smoking Status: Former smoker - Past Family History Mother Family Medical History: Cancer Additional Family Medical History / Comment(s): Black Lung Disease. Brother(s) Family Medical History: Cancer Additional Family Medical History / Comment(s): Pancreatic cancer. Medications and Allergies Home Medications Medication Instructions Recorded Confirmed Type Omeprazole 40 mg PO HS 03/30/19 05/26/24 History metFORMIN HCL [Glucophage] 500 mg PO BID 03/30/19 05/26/24 History Calcium Carb/Mag Ox/Zinc Sulf 1 tab PO QAM 03/02/22 05/26/24 History [Xya-Lcz-Nxjg 334-134-5 mg Tab] tadalafiL 5 mg PO HS PRN 03/02/22 05/26/24 History Aspirin [Adult Low Dose Aspirin EC] 81 mg PO QAM 05/08/22 05/26/24 History traMADol HCL 50 mg PO HS 05/08/22 05/26/24 History Empagliflozin [Jardiance] 10 mg PO QAM 05/13/22 05/26/24 History Rosuvastatin [Crestor] 5 mg PO HS 06/11/22 05/26/24 History Multivitamins, Thera [Multivitamin 1 tab PO QAM 09/10/23 05/26/24 History (formulary)] Mesalamine Dr (Unknown Dose) 1 dose PO QAM 05/23/24 05/26/24 History Allergies Allergy/AdvReac Type Severity Reaction Status Date / Time No Known Allergies Allergy Verified 05/23/24 15:20 Surgical - Exam Vital Signs Temp Pulse Resp BP Pulse Ox 97.7 F 70 18 143/73 97 05/26/24 06:22 05/26/24 06:22 05/26/24 06:22 05/26/24 06:22 05/26/24 06:22
[2024-05-26 06:34] LABS: Glucose,Whole Blood 168 mg/dL (70-110)
[2024-05-26 06:49] LABS: HCT 52.7 % (39.0-53.0); HGB 16.8 gm/dL (13.0-17.5); MCH 28.9 pg (25.0-35.0); MCHC 31.9 g/dL (31.0-37.0); MCV 90.6 fL (80.0-100.0); Mean Platelet Volume 6.9; Platelet Count 228 k/uL (150-450); RBC 5.82 m/uL (4.30-5.90); RDW 13.6 % (11.5-15.5); WBC 6.2 k/uL (3.8-10.6)
[2024-05-26] MEDS: MELOXICAM 7.5 MG TAB PO PRN (06:55)
[2024-05-26] MEDS: LACTATED RINGERS 1,000 ML IV SCH (06:55)
[2024-05-26] MEDS: ACETAMINOPHEN TAB 500 MG TAB PO PRN (06:55)
[2024-05-26] MEDS: TAMSULOSIN 0.4 MG CAP.ER.24H PO STA (06:55)
[2024-05-26 06:56] LABS: ALT 31 U/L (4-49); AST 35 U/L (17-59); African American GFR (CKD) >90 (>60 ml/min/1.73 sqM); Albumin 4.6 g/dL (3.5-5.0); Alkaline Phosphatase 58 U/L (38-126); Anion Gap 12 mmol/L; Blood Urea Nitrogen 17 mg/dL (9-20); Calcium 9.6 mg/dL (8.4-10.2); Carbon Dioxide 24 mmol/L (22-30); Chloride 103 mmol/L (98-107); Glucose 159 mg/dL (74-99); Non-African American GFR(CKD) 88 (>60 ml/min/1.73 sqM); Sodium 139 mmol/L (137-145); Total Bilirubin 0.8 mg/dL (0.2-1.3); Total Protein 7.8 g/dL (6.3-8.2)
[2024-05-26] MEDS: ONDANSETRON 4 MG/2 ML VIAL IVP PRN (06:56)
[2024-05-26] MEDS ORDERED: MIDAZOLAM 2 MG/2 ML VIAL IV PRN (07:00)
[2024-05-26 07:02] LABS: Potassium 4.5 mmol/L (3.5-5.1)
[2024-05-26] MEDS: HEPARIN SODIUM,PORCINE 5,000 UNIT/ML 1 ML VIAL SQ PRN (07:05)
[2024-05-26] MEDS ORDERED: NEOSTIGMINE 1 MG/ML 10 ML VIAL ONE (07:36)
[2024-05-26] MEDS ORDERED: ROCURONIUM 10 MG/ML (5 ML VIAL) IV ONE (07:36)
[2024-05-26] MEDS ORDERED: fentaNYL (PF) 50 MCG/ML 2 ML AMP ONE (07:36)
[2024-05-26] MEDS ORDERED: PROPOFOL 10 MG/ML 20 ML VIAL IV ONE (07:36)
[2024-05-26] MEDS ORDERED: LIDOCAINE 1% INJ 10MG/ML (20 ML MDV) ONE (07:36)
[2024-05-26] MEDS ORDERED: GLYCOPYRROLATE 0.2 MG/ML 2 ML VIAL ONE (07:36)
[2024-05-26] MEDS ORDERED: ePHEDrine 50 MG/ML 1 ML VIAL ONE (07:36)
[2024-05-26] MEDS ORDERED: SUCCINYLCHOLINE CHLORIDE 200 MG/10 ML VIAL IV ONE (07:36)
[2024-05-26] MEDS ORDERED: PHENYLEPHRINE 10 MG/ML VIAL ONE (07:36)
[2024-05-26] MEDS ORDERED: MIDAZOLAM 2 MG/2 ML VIAL ONE (07:36)
[2024-05-26] MEDS: LIDOCAINE 1%-EPI 1:100,000 20 ML VIAL SQ ONE (07:56)
[2024-05-26 09:22] VITALS: RESP 16; TEMP 98
[2024-05-26] MEDS: HYDROmorphone 0.5 MG/0.5 ML SYRINGE IVP PRN (09:26)
[2024-05-26 10:06] LABS: Glucose,Whole Blood 196 mg/dL (70-110)
[2024-05-26] MEDS: KETOROLAC 15 MG/ML 1 ML VIAL IVP STA (11:16)
[2024-05-26] MEDS ORDERED: FAMOTIDINE 20 MG/2 ML VIAL IV STA ×2 (11:16→11:18)
[2024-05-26] MEDS: FAMOTIDINE 20 MG/2 ML VIAL IV ONE (11:23)
--- NOTE | 2024-05-26 11:42 | P.OP ---
Date of Procedure: 05/26/24 Description of Procedure: SURGEON: PENELOPE SHETTY MD PREOPERATIVE DIAGNOSES: 1. Recurrent incarcerated ventral hernia 2. Hypertensive heart disease 3. Coronary artery disease 4. Status post stents placement 5. Diabetes type 2, not insulin-dependent 6. Hyperlipidemia 7. Ulcerative colitis 8. Gastroesophageal reflux disease 9. Rheumatoid arthritis 10. Sensorineural hearing loss 11. Status post heart catheterization POSTOPERATIVE DIAGNOSES: 1. Recurrent incarcerated ventral hernia, 3 x 4 cm 2. Hypertensive heart disease 3. Coronary artery disease 4. Status post stents placement 5. Diabetes type 2, not insulin-dependent 6. Hyperlipidemia 7. Ulcerative colitis 8. Gastroesophageal reflux disease 9. Rheumatoid arthritis 10. Sensorineural hearing loss 11. Status post heart catheterization 12. Hepatomegaly with fatty liver disease 13. Diastases recti OPERATION: 1. Robotic-assisted da Tracey Xi laparoscopic repair of recurrent incarcerated ventral hernia, 3 x 4 cm with mesh, ventralight ST mesh 11.4 cm Anesthesia: GETA, regional Estimated Blood Loss (ml): 5 Pathology: 1. Incarcerated umbilical hernia defect 2. Incarcerated upper midline ventral hernia defect COMPLICATIONS: None. Operative Findings: 1. Incarcerated recurrent umbilical hernia defect 4 x 3 cm with omentum incarcerated 2. Fascia repaired using #1 V-lock suture INDICATIONS: The patient is a 76-year-old male who presents with a personal history of recurrent abdominal wall hernia and recent cardiac stent placement. Patient obtained cardiac risk assessment. Surgical intervention with laparoscopic versus robotic and open techniques were reviewed. Placement of mesh was also reviewed. Benefits and risks were thoroughly described. Informed consent was obtained. Patient declined abdominal wall block. DESCRIPTION OF PROCEDURE: The patient was brought into the operating room and laid in supine position. After general induction, the abdomen had been prepped and draped in standard sterile fashion. Ioban draping was also placed. Prior to incision, a timeout protocol was confirmed with surgical team regarding the patient's name including procedures to be performed. The robot was primed prior to the procedure. A field block using local anesthetic was placed along hernia site including the proposed port sites. Initial incision was made with an #11 blade along the left upper quadrant. A 0 degree 5 mm laparoscopic trocar entry was performed and insufflated. Three 8 mm ports were placed along the left lateral abdominal wall under direct localization after exchanging the 5-mm for an 8 mm port. Placements of the ports were 15 cm from the target anatomy and 10 cm apart. An accessory 12 mm port was placed at the left upper quadrant for exchange of mesh including sutures. The da Tracey Xi robot was previously primed, prepped and draped then docked from the right side of the patient onto the left side of the patient. I then sat at the robot Da Tracey Xi console where working arms of the robot including Bovie cautery connected to robotic scissors, needle motor pool driver, and graspers placed by the licensed occupational therapy assistant. Incarcerated omental contents were found along the umbilicus. The incarcerated omentum was released and reduced from the fascial defect. Fascial umbilical defect 4 x 3 cm was measured. The incarcerated contents were reduced as the peritoneal fat was cleaned from the abdominal wall. Next, hemostasis was checked with cautery. The hernia defects were oversewn using #1 nonabsorbable V-lock suture with fascial imbrication x 2. Next, ventralight ST mesh 11.4 cm was placed with the rough side towards the abdominal wall as to cover the epigastric including umbilical defect. 2-0 VLOC sutures were used to fixate the mesh. A final endoscopic imaging was obtained. All instruments and pneumoperitoneum were evacuated from the abdominal cavity. The da Tracey Xi robot was undocked from the patient. I re-scrubbed into the case for closure of incisions. The fascia of the 12-mm port was probed and less than 8-mm in size. The incisions were reapproximated using 4-0 Monocryl in an interrupted subcuticular fashion. Liquid glue was applied to the skin after cleansing the skin with normal saline and dilute hydrogen peroxide. An abdominal binder was placed. An umbilical dressing was placed prior with sterile cotton balls. At the end of the procedure, needle, sponge, and instrument count had been verified correct by neurosurgical physician assistant. The patient was taken to the postanesthesia care unit in stable condition. Plan - Discharge Summary Discharge Rx Participant: No New Discharge Prescriptions: New RX: Simethicone [Gas-X] 125 mg PO AC-TID PRN #20 capsule PRN Reason: Pain Acetaminophen Tab [Tylenol Tab] 1,000 mg PO Q6HR PRN #30 tablet PRN Reason: Pain Cyclobenzaprine [Flexeril] 10 mg PO TID #30 tab RX: Ibuprofen [Motrin] 600 mg PO Q8HR PRN #30 tab PRN Reason: Pain Continue RX: metFORMIN HCL [Glucophage] 500 mg PO BID RX: Omeprazole 40 mg PO HS RX: tadalafiL 5 mg PO HS PRN PRN Reason: ERECTILE DYSFUNCTION RX: Aspirin [Adult Low Dose Aspirin EC] 81 mg PO QAM RX: Multivitamins, Thera [Multivitamin (formulary)] 1 tab PO QAM Mesalamine Dr (Unknown Dose) 1 dose PO QAM RX: Calcium Carb/Mag Ox/Zinc Sulf [Fmg-Udd-Vtwp 334-134-5 mg Tab] 1 tab PO QAM RX: traMADol HCL 50 mg PO HS RX: Empagliflozin [Jardiance] 10 mg PO QAM RX: Rosuvastatin [Crestor] 5 mg PO HS Discharge Medication List RX: Omeprazole 40 mg PO HS 03/30/19 [History] RX: metFORMIN HCL [Glucophage] 500 mg PO BID 03/30/19 [History] RX: Calcium Carb/Mag Ox/Zinc Sulf [Weo-Mqm-Dvtl 334-134-5 mg Tab] 1 tab PO QAM 03/02/22 [History] RX: tadalafiL 5 mg PO HS PRN 03/02/22 [History] RX: Aspirin [Adult Low Dose Aspirin EC] 81 mg PO QAM 05/08/22 [History] RX: traMADol HCL 50 mg PO HS 05/08/22 [History] RX: Empagliflozin [Jardiance] 10 mg PO QAM 05/13/22 [History] RX: Rosuvastatin [Crestor] 5 mg PO HS 06/11/22 [History] RX: Multivitamins, Thera [Multivitamin (formulary)] 1 tab PO QAM 09/10/23 [History] Mesalamine Dr (Unknown Dose) 1 dose PO QAM 05/23/24 [History] Acetaminophen Tab [Tylenol Tab] 1,000 mg PO Q6HR PRN #30 tablet 05/26/24 [Rx] Cyclobenzaprine [Flexeril] 10 mg PO TID #30 tab 05/26/24 [Rx] RX: Ibuprofen [Motrin] 600 mg PO Q8HR PRN #30 tab 05/26/24 [Rx] RX: Simethicone [Gas-X] 125 mg PO AC-TID PRN #20 capsule 05/26/24 [Rx] Follow up Appointment(s)/Referral(s): Penelope Shetty MD [STAFF PHYSICIAN] - 05/30/24 3:30 pm Patient Instructions/Handouts: Laparoscopic Herniorrhaphy (DC), Abdominal Binder (DC), Ventral Hernia Repair (GEN) Activity/Diet/Wound Care/Special Instructions: HERNIA DO NOT REMOVE UMBILICAL DRESSING. NO LONG DRIVES OR AIRPLANE RIDES OVER 60 MINUTES FOR THE NEXT 2 WEEKS, 06/09/24, DUE TO HIGH RISK OF PULMONARY EMBOLISM/DVTs Using antibacterial soap. No lifting over 4 pounds 4 weeks, June 23July shower. No bathtub soaks for 2 weeks, 06/09/24 Wear abdominal binder daily for comfort except for showering. Use ice along incisions for today to prevent swelling. Take tylenol, flexeril, simethicone scheduled for 3 days for best pain relief Discharge Disposition: HOME SELF-CARE
[2024-05-26 13:48] VITALS: BP 123/57; PULSE 83
== END 2024-05-26 14:04 | disposition home or self-care (01) ==
LOC: OR 05:37
PROVIDERS: ATTEND Surgery Plastic and Reconstructive Surgery
DX: K43.0 Incisional hernia with obstruction, without gangrene (principal); K42.0 Umbilical hernia with obstruction, without gangrene; K76.0 Fatty (change of) liver, not elsewhere classified; M62.08 Separation of muscle (nontraumatic), other site; I11.9 Hypertensive heart disease without heart failure; I25.10 Atherosclerotic heart disease of native coronary artery without angina pectoris; E11.9 Type 2 diabetes mellitus without complications; E78.5 Hyperlipidemia, unspecified; K51.90 Ulcerative colitis, unspecified, without complications; K21.9 Gastro-esophageal reflux disease without esophagitis; M06.9 Rheumatoid arthritis, unspecified; H90.5 Unspecified sensorineural hearing loss; Z95.5 Presence of coronary angioplasty implant and graft; G47.30 Sleep apnea, unspecified; Z98.890 Other specified postprocedural states; Z87.891 Personal history of nicotine dependence; Z79.84 Long term (current) use of oral hypoglycemic drugs; Z79.899 Other long term (current) drug therapy; Z79.82 Long term (current) use of aspirin
CPT/HCPCS: 49616; 80053; 85027; 88302; C1781; J2250; J0330; J1644; J2710; J0690; J2405; J2003; J3010; J3490; J1885; J2704; J1171; J2371; J1596